=== PATIENT | female | born 1995 | race Caucasian/White ===

== ENCOUNTER → 2020-06-13 | Outpatient (CLI) | payer BC | END | disposition home or self-care (01) | LOC: LABWHC1 14:48 | PROVIDERS: ATTEND Otolaryngology | DX: J30.89 Other allergic rhinitis (principal) | CPT/HCPCS: 36415 ==

== ENCOUNTER → 2020-07-27 | Outpatient (CLI) | payer BC ==
--- NOTE | 2020-07-27 21:56 | CT ---
EXAMINATION TYPE: CT sinus wo con DATE OF EXAM: 07/27/2020 COMPARISON: HISTORY: Chronic sinusitis CT DLP: 660.80 mGycm. Automated Exposure Control for Dose Reduction was Utilized. TECHNIQUE: CT scan of the sinuses is performed without contrast, axial images are obtained, coronal r eformatted images are also reviewed. FINDINGS: The paranasal sinuses including the frontal, ethmoid, sphenoid, and maxillary sinuses bila terally are well-aerated without abnormal opacification. The ostiomeatal complex is patent bilateral ly on the coronal images. Greer cells noted bilaterally. There is a mildly deviated nasal septum tow ards the left. Cerumen present within the external auditory canals. Visualized portion of mastoid air cells show no abnormal opacification. The globes are intact bilate rally. IMPRESSION: The sinuses are clear and the ostiomeatal complex is patent bilaterally.
== END | disposition home or self-care (01) ==
LOC: RADCTMAIN 17:12
PROVIDERS: ATTEND Otolaryngology
DX: J32.9 Chronic sinusitis, unspecified (principal)
CPT/HCPCS: 70486

== ENCOUNTER 2022-12-29 16:25 | Outpatient (CLI) | payer BC ==
[2022-12-29] MEDS ORDERED: ONDANSETRON 4 MG/2 ML VIAL IVP STA (17:02)
[2022-12-29] MEDS ORDERED: FAMOTIDINE 20 MG/2 ML VIAL IV SCH (17:15)
[2022-12-29] MEDS ORDERED: LACTATED RINGERS 1,000 ML IV SCH (17:15)
[2022-12-29 17:32] LABS: Appearance,Urine Clear (Clear); Bilirubin,Urine Negative (Negative); Blood,Urine Negative (Negative); Color,Urine Light Yellow; Glucose,Urine (UA) Negative (Negative); Ketones,Urine Negative (Negative); Leukocyte Esterase,Urine Negative (Negative); Nitrite,Urine Negative (Negative); Protein,Urine Negative (Negative); Specific Gravity,Urine 1.016 (1.001-1.035); Urobilinogen,Urine <2.0 mg/dL (<2.0)
[2022-12-29] MEDS ORDERED: ACETAMINOPHEN IV (For NPO) 1,000 MG in EMPTY BAG 1 BAG IVPB ONE (17:36)
[2022-12-29 17:43] LABS: Creatinine,Urine Random 74.3 mg/dL; Protein/Creatinine Ratio,Urine 0.108
[2022-12-29 17:50] LABS: Basophils % (A) 0 %; Eosinophils # (A) 0.1 k/uL (0-0.7); Eosinophils % (A) 0 %; HCT 31.2 % (34.0-46.0); HGB 10.7 gm/dL (11.4-16.0); Lymphocytes # (A) 1.2 k/uL (1.0-4.8); Lymphocytes % (A) 4 %; MCHC 34.1 g/dL (31.0-37.0); Mean Platelet Volume 9.2; Monocytes # (A) 0.7 k/uL (0-1.0); Monocytes % (A) 2 %; Neutrophils # (A) 25.8 k/uL (1.3-7.7); Neutrophils % (A) 93 %; Platelet Count 222 k/uL (150-450); RBC 3.67 m/uL (3.80-5.40); RDW 12.8 % (11.5-15.5); WBC 27.9 k/uL (3.8-10.6)
[2022-12-29 18:03] LABS: ALT 27 U/L (4-34); AST 28 U/L (14-36); African American GFR (CKD) >90 (>60 ml/min/1.73 sqM); Albumin 3.7 g/dL (3.5-5.0); Alkaline Phosphatase 110 U/L (38-126); Anion Gap 6 mmol/L; Blood Urea Nitrogen 7 mg/dL (7-17); Calcium 9.5 mg/dL (8.4-10.2); Carbon Dioxide 22 mmol/L (22-30); Chloride 104 mmol/L (98-107); Glucose 105 mg/dL (74-99); LDH 209 U/L (120-246); Non-African American GFR(CKD) >90 (>60 ml/min/1.73 sqM); Potassium 4.2 mmol/L (3.5-5.1); Sodium 132 mmol/L (137-145); Total Bilirubin 0.5 mg/dL (0.2-1.3); Total Protein 6.6 g/dL (6.3-8.2); Uric Acid 3.5 mg/dL (3.7-7.4)
[2022-12-29 19:44] VITALS: BP 153/92; PULSE 121; RESP 18; TEMP 98.5
--- NOTE | 2022-12-31 08:00 | P.MSEPDOC ---
Presenting Problems - Arrival Data Date of Arrival on Unit: 12/29/22 Time of Arrival on Unit: 18:14 Mode of Transport: Ambulatory - Complaint OB-Reason for Admission/Chief Complaint: Acute Nausea/Vomiting, Headache, Other Comment: pt presents to triage after being asssessed at urgent care for covid/flu which was negative, they instructed her to be evaluated for elevated maternal heart rate, n/v, diarreha, body aches, chills, and SOB, Medical History - Information : 1 Para: 0 Term: 0 : 0 Abortions: Spontaneous or Elective: 0 Number of Living Children: 0 - Gestational Age Gestational Age by HARPAL (wks/days): 32 Weeks and 6 Days Review of Systems - Review of Systems Constitutional: No problems Breast: No problems ENT: No problems Cardiovascular: No problems Respiratory: No problems Gastrointestinal: No problems Genitourinary: No problems Musculoskeletal: No problems Neurological: No problems Skin: No problems Vital Signs - Temperature Temperature: 98.5 F Temperature Source: Temporal Artery Scan - Pulse Right Brachial Pulse Rate: 121 Pulse Assessment Method: Auscultation - Respirations Respiratory Rate: 18 Oxygen Delivery Method: Room Air O2 Sat by Pulse Oximetry: 96 - Blood Pressure Right Arm Blood Pressure: 153/92 Blood Pressure Mean: 112 Blood Pressure Source: Automatic Cuff Medical Screen Scoring - Uterine Contractions Intensity: Mild Resting: Soft to palpation - Assessment - Baby A Baseline FHR: 155 Heart Rate - NICHD Category: Category I (Normal) NST: Reactive Physician Notification - Physician Notified Physician Notified Date: 12/29/22 Physician Notified Time: 17:10 Physician: Gris Anderson New Order Received: Yes - Notification Comment Comment: Pt had work up for PIH due to 1st elevated bp's, wbc and neutraphils elevated, sodium low at 132, all other labs wnl, given ivf bolus, zofran, pepcid, and offirmive iv, pt feeling better, bp's wnl before disharge, has follow up appt in office on 01/08, Maternal Triage Index - Maternal Triage Index Presenting for scheduled procedure w/no complaint: No - Stat/Priority 1 Stat Priority 1: No - Urgent/Priority 2 Urgent Priority 2: No - Prompt/Priority 3 Prompt Priority 3: No - Non-Urgent/Priority 4 Non-Urgent Priority 4: Yes Criteria Met for Priority 4: pt presents to triage after being asssessed at urgent care for covid/flu which was negative, they instructed her to be evaluated for elevated maternal heart rate, n/v, diarreha, body aches, chills, and SOB, Disposition - Disposition OB Disposition: Physician follow up in office, Triage, Discharge to home, Written follow up instructions reviewed Discharge Date: 12/29/22 Discharge Time: 19:00 I agree with the RN Medical Screening Exam: Yes Physician's MSE Comment: I have neither seen nor examined the patient Case reviewed; plan agreed upon as documented in EMR&OBIX.: Yes Diagnosis: MATERNAL CARE FOR PROBLEM, UNSP, THIRD * DO NOT USE *
== END 2022-12-29 19:00 | disposition home or self-care (01) ==
LOC: FBPOP 16:25
PROVIDERS: ATTEND Obstetrics & Gynecology
DX: O21.9 Vomiting of pregnancy, unspecified (principal); R51.9 Headache, unspecified; Z3A.32 32 weeks gestation of pregnancy; Z20.822 Contact with and (suspected) exposure to COVID-19; Z88.1 Allergy status to other antibiotic agents
CPT/HCPCS: 59025; 99215; 96361; 96365; 96375; 82570; 80053; 84156; 83615; 84550; 85025; 81003; J2405; J3490; J0131

== ENCOUNTER 2023-02-10 13:40 | Inpatient (IN) | payer BC ==
[2023-02-10 14:50] LABS: Appearance,Urine Clear (Clear); Bacteria,Urine Rare /hpf; Bilirubin,Urine Negative (Negative); Blood,Urine Negative (Negative); Color,Urine Light Yellow; Glucose,Urine (UA) Negative (Negative); Ketones,Urine Negative (Negative); Leukocyte Esterase,Urine Negative (Negative); Mucus,Urine Rare /hpf; Nitrite,Urine Negative (Negative); PH, Urine 6.5 (5.0-8.0); Protein,Urine 1+ (Negative); RBC,Urine 1 /hpf (0-5); Specific Gravity,Urine 1.018 (1.001-1.035); Squamous Epithelial Cell,Urine 5 /hpf (0-4); Urobilinogen,Urine <2.0 mg/dL (<2.0); WBC,Urine 1 /hpf (0-5)
[2023-02-10] MEDS ORDERED: OXYTOCIN 10 UNIT/ML 1 ML VIAL IM PRN (15:11)
[2023-02-10] MEDS ORDERED: METHYLERGONOVINE 0.2 MG/ML 1 ML AMP IM PRN (15:11)
[2023-02-10] MEDS ORDERED: CARBOPROST TROMETHAMINE 250 MCG/ML 1 ML AMP IM PRN (15:11)
[2023-02-10] MEDS ORDERED: LIDOCAINE 0.5% (PF) 5 MG/ML (50 ML SDV) SQ PRN (15:11)
[2023-02-10] MEDS ORDERED: TRANEXAMIC 1,000 MG/100ML-NACL 1,000 MG in EMPTY BAG 1 BAG IV PRN (15:11)
[2023-02-10] MEDS ORDERED: TERBUTALINE 1 MG/ML VIAL SQ PRN (15:11)
[2023-02-10] MEDS ORDERED: miSOPROStoL 200 MCG TAB PO PRN (15:11)
[2023-02-10] MEDS ORDERED: PENICILLIN G POTASSIUM 5,000,000 UNIT in DEXTROSE 5% IN WATER 100 ML IVPB STA ×2 (15:11)
[2023-02-10] MEDS ORDERED: OXYTOCIN 30 UNITS/500 ML NS 30 UNIT in SALINE 1 500ML.BAG IV SCH (15:15)
[2023-02-10 15:43] LABS: Basophils # (A) 0.1 k/uL (0-0.2); Basophils % (A) 0 %; Eosinophils # (A) 0.1 k/uL (0-0.7); Eosinophils % (A) 1 %; HCT 39.9 % (34.0-46.0); HGB 13.1 gm/dL (11.4-16.0); Lymphocytes # (A) 2.3 k/uL (1.0-4.8); Lymphocytes % (A) 14 %; MCH 26.6 pg (25.0-35.0); MCHC 32.9 g/dL (31.0-37.0); Mean Platelet Volume 10.7; Monocytes # (A) 0.6 k/uL (0-1.0); Monocytes % (A) 4 %; Neutrophils # (A) 13.3 k/uL (1.3-7.7); Neutrophils % (A) 80 %; Platelet Count 244 k/uL (150-450); RBC 4.93 m/uL (3.80-5.40); RDW 13.9 % (11.5-15.5); WBC 16.5 k/uL (3.8-10.6)
[2023-02-10] MEDS: LACTATED RINGERS 1,000 ML IV SCH ×2 (15:44→18:22)
[2023-02-10] MEDS ORDERED: ROPIVACAINE 5 MG/ML 30 ML VIAL ONE (17:55)
[2023-02-10] MEDS ORDERED: fentaNYL (PF) 50 MCG/ML 5 ML AMP ONE (17:55)
[2023-02-10] MEDS ORDERED: SODIUM CHLORIDE 0.9% 250 ML BAG ONE (17:55)
[2023-02-10] MEDS: PENICILLIN G POTASSIUM 2,500,000 UNIT in DEXTROSE 5% IN WATER 100 ML IVPB SCH ×2 (19:29)
[2023-02-10] MEDS ORDERED: FAMOTIDINE 20 MG/2 ML VIAL IV SCH (21:12)
--- NOTE | 2023-02-10 21:12 | P.HPOB ---
History of Present Illness H&P Date: 02/10/23 Chief Complaint: Regular contractions 28 year old at 39 weeks and 0 days with EDC of 02/17/2023 (by LMP consistent with 7 week US) who presents in labor. The has been complicated by maternal anxiety for which she is seeing a therapist and taking Zoloft 50mg daily. There was also an irregular heart rate noted at 24 weeks which resolved. work-up: blood type O positive, antibody negative, rubella immune, VDRL non-reactive, HBsAg negative, HIV negative, HCV Ab negative, gonorrhea negative, chlamydia negative, 1 hour GTT within normal limits, GBS positive. TDap administered 12/24/2022. Past Medical History Past Medical History: Asthma History of Any Multi-Drug Resistant Organisms: None Reported Past Surgical History: No Surgical Hx Reported Past Anesthesia/Blood Transfusion Reactions: No Reported Reaction Past Psychological History: Anxiety Smoking Status: Never smoker Past Alcohol Use History: None Reported Past Drug Use History: None Reported Medications and Allergies Home Medications Medication Instructions Recorded Confirmed Type Acetaminophen/Diphenhydramine 1 tab PO HS 02/10/23 02/10/23 History [Tylenol PM 500-25mg] Famotidine [Pepcid] 20 mg PO DAILY 02/10/23 02/10/23 History Montelukast Sodium 10 mg PO DAILY 02/10/23 02/10/23 History Sertraline [Zoloft] 50 mg PO DAILY 02/10/23 02/10/23 History Allergies Allergy/AdvReac Type Severity Reaction Status Date / Time azithromycin Allergy Rash/Hives Verified 02/10/23 13:51 [From Zithromax Z-Ney] Exam Vital Signs Temp Pulse Resp BP Pulse Ox 02/10/23 13:50 97 F L 100 16 139/92 96 Intake and Output 02/10/23 02/10/23 02/10/23 06:59 14:59 22:59 Other: Weight 99.79 kg 99.79 kg Focused physical exam is performed. This is a healthy-appearing in no apparent distress. Breathing is non-labored. Abdomen is gravid and non-tender. Cervical exam is 5 cm, 90 effacement, -2 station. AROM is undertaken with thick meconium noted. Extremities non-tender and non-edematous. heart tones are Category I and tocometer is graphing contractions every 2-4 minutes. Results Result Diagrams: 02/10/23 15:30 Abnormal Lab Results - Last 24 Hours (Table) 02/10/23 02/10/23 Range/Units 13:57 15:30 WBC 16.5 H (3.8-10.6) k/uL Neutrophils # 13.3 H (1.3-7.7) k/uL Urine Protein 1+ H (Negative) Ur Squamous Epith Cells 5 H (0-4) /hpf Urine Bacteria Rare H (None) /hpf Urine Mucus Rare H (None) /hpf Assessment and Plan Assessment: 28 year old at 39 weeks presenting in spontaneous labor Plan: Admit, clear liquid diet, pitocin per protocol, has epidural, continuous EFM and tocometer, close monitoring of patient. Anticipate vaginal delivery. Time with Patient: Less than 30
[2023-02-11] MEDS: PENICILLIN G POTASSIUM 2,500,000 UNIT in DEXTROSE 5% IN WATER 100 ML IVPB SCH ×4 (01:41→04:55)
[2023-02-11] MEDS: LACTATED RINGERS 1,000 ML IV SCH (02:55)
[2023-02-11] MEDS ORDERED: HYDROCORTISONE 2.5% RECTAL CREAM 30 GM TUBE RECTAL PRN (07:28)
[2023-02-11] MEDS ORDERED: diphenhydrAMINE 50 MG CAP PO PRN (07:28)
[2023-02-11] MEDS ORDERED: BENZOCAINE/MENTHOL SPRAY 1 GM/SPRAY AEROSOL TOPICAL PRN (07:28)
[2023-02-11] MEDS ORDERED: SIMETHICONE 80 MG CHEWABLE PO PRN (07:28)
[2023-02-11] MEDS ORDERED: diphenhydrAMINE 50 MG/ML 1 ML VIAL IVP PRN ×2 (07:28)
[2023-02-11] MEDS ORDERED: LANOLIN CREAM 5 GM TUBE TOPICAL PRN (07:28)
[2023-02-11] MEDS ORDERED: diphenhydrAMINE 25 MG CAP PO PRN (07:28)
[2023-02-11] MEDS ORDERED: ZOLPIDEM 5 MG TAB PO PRN (07:28)
--- NOTE | 2023-02-11 07:28 | P.PROBDLV ---
Vaginal Delivery Note - . Vaginal Delivery Note: DATE OF SERVICE: 02/11/2023 PROCEDURE: Normal Vaginal Delivery ATTENDING: Dr. Gris Anderson MD ESTIMATED BLOOD LOSS: 300 mL FINDINGS: VMI, Apgars 8/9. Weight 7 pounds and 12 ounces (3511 grams) PROCEDURE: Ms. Soriano is a 28 year old at 39 weeks and 1 day who presented to labor and delivery in spontaneous labor. Epidural anesthesia was given per the patient's request. Oxytocin augmentation was started and AROM was undertaken at 2058. The patient was completely dilated at 419. The patient pushed effectively with Category I featl heart tones throughout the second stage of labor. A viable male infant was delivered at 651 in occiput anterior presentat ion. The infant was placed on the maternal abdomen and bulb suctioned. The infant was noted to be spontaneously crying. Cord was clamped and cut after a 30-second delay. The was handed off to the pediatric team. Placenta was delivered whole with gentle cord traction at 655. Oxytocin was started to facilitate uterine tone. Uterine fundus was found to be firm and below the umbilicus upon fundal massage. Thorough examination of the cervix, vagina, periurethral area, and perineum revealed a second degree laceration. This laceration was infused with lidocaine and repaired with 2-0 Vicryl in the usual fashion. The patient is stable and allowed to begin the bonding process.
[2023-02-11] MEDS: SENNOSIDES-DOCUSATE SODIUM 1 EACH TAB PO SCH ×2 (08:00→19:59)
[2023-02-11] MEDS: IBUPROFEN 600 MG TAB PO PRN ×3 (09:30→22:28)
[2023-02-11 17:43] VITALS: RESP 16
[2023-02-11] MEDS: ACETAMINOPHEN TAB 325 MG TAB PO PRN (18:20)
[2023-02-12] MEDS: ACETAMINOPHEN TAB 325 MG TAB PO PRN (00:25)
[2023-02-12 07:07] LABS: Basophils # (A) 0.1 k/uL (0-0.2); Basophils % (A) 0 %; Eosinophils # (A) 0.1 k/uL (0-0.7); Eosinophils % (A) 1 %; HCT 32.6 % (34.0-46.0); HGB 10.6 gm/dL (11.4-16.0); Hypochromasia Slight; Lymphocytes # (A) 3.7 k/uL (1.0-4.8); Lymphocytes % (A) 19 %; MCH 26.7 pg (25.0-35.0); MCHC 32.4 g/dL (31.0-37.0); MCV 82.2 fL (80.0-100.0); Mean Platelet Volume 10.7; Monocytes # (A) 0.8 k/uL (0-1.0); Monocytes % (A) 4 %; Neutrophils # (A) 14.4 k/uL (1.3-7.7); Neutrophils % (A) 74 %; Platelet Count 199 k/uL (150-450); RBC 3.97 m/uL (3.80-5.40); RDW 14.2 % (11.5-15.5); WBC 19.3 k/uL (3.8-10.6)
[2023-02-12] MEDS: IBUPROFEN 600 MG TAB PO PRN (07:11)
[2023-02-12 08:36] VITALS: BP 131/78; PULSE 77; TEMP 98.2
[2023-02-12] MEDS: SENNOSIDES-DOCUSATE SODIUM 1 EACH TAB PO SCH (09:36)
--- NOTE | 2023-02-12 10:23 | P.PNOBGVD ---
Subjective - Subjective Principal diagnosis: day 1 status post normal spontaneous vaginal delivery Interval history: Patient is doing well this morning. She is ambulating and voiding without difficulty. She is in moderate pain which ibuprofen is controlling. She states her bleeding is moderate. Patient reports: Reports appetite normal, Reports voiding normally, Reports pain well controlled, Reports ambulating normally [place]: doing well Objective - Latest Vital Signs Latest vital signs: Vital Signs Temp Pulse Resp BP Pulse Ox 02/12/23 08:00 98.2 F 77 16 131/78 02/12/23 00:00 97.5 F L 71 16 132/78 02/11/23 17:38 97.8 F 91 16 126/81 02/11/23 12:00 98.6 F 84 15 125/80 97 - Exam Extremities: Present: normal, edema Abdomen: Present: normal appearance, soft Uterus: Present: normal, firm - Labs Labs: Abnormal Lab Results - Last 24 Hours (Table) 02/12/23 Range/Units 06:55 WBC 19.3 H (3.8-10.6) k/uL Hgb 10.6 L (11.4-16.0) gm/dL Hct 32.6 L (34.0-46.0) % Neutrophils # 14.4 H (1.3-7.7) k/uL Assessment and Plan (1) Obstetrical laceration, second degree Current Visit: Yes Status: Acute Code(s): O70.1 - SECOND DEGREE PERINEAL LACERATION DURING DELIVERY SNOMED Code(s): 1294282 (2) Active labor at term Current Visit: Yes Status: Acute Code(s): BJO3815 - SNOMED Code(s): 14066614 (3) Normal vaginal delivery Current Visit: Yes Status: Acute Code(s): O80 - ENCOUNTER FOR FULL-TERM UNCOMPLICATED DELIVERY SNOMED Code(s): 10745224 (4) Second degree perineal laceration Current Visit: Yes Status: Acute Code(s): O70.1 - SECOND DEGREE PERINEAL LACERATION DURING DELIVERY SNOMED Code(s): 9798702 (5) Thick meconium stained amniotic fluid Current Visit: Yes Status: Acute Code(s): P96.83 - MECONIUM STAINING SNOMED Code(s): 812958393 Plan: 20-year-old G1 now P1 status post normal spontaneous vaginal delivery. Patient is doing well this morning. Plan to continue routine care Anticipate discharge home tomorrow.
--- NOTE | 2023-02-12 17:18 | P.DS ---
Providers Date of admission: 02/10/23 15:24 Expected date of discharge: 02/12/23 Attending physician: Ciera Maddox Primary care physician: Stated None - Discharge Diagnosis(es) (1) Obstetrical laceration, second degree Current Visit: Yes Status: Acute (2) Active labor at term Current Visit: Yes Status: Acute (3) Normal vaginal delivery Current Visit: Yes Status: Acute (4) Second degree perineal laceration Current Visit: Yes Status: Acute (5) Thick meconium stained amniotic fluid Current Visit: Yes Status: Acute Hospital Course: This is a 28-year-old 1 now para 1 that presented to labor and delivery at 39 and one sevenths weeks with complaints of spontaneous labor. Patient receiving routine care which had been essentially uncomplicated. Patient does struggle with anxiety for which she was taking Zoloft through the . Patient was admitted and Pitocin augmentation of labor was begun, amniotomy was performed around 2057 on 02/10. Patient was noted to be completely dilated at 0419 on 02/11 patient is currently began pushing and had a normal spontaneous vaginal delivery of a viable male infant, weight of 7 lbs. 12 oz., Apgars of 8 and 9 at one and 5 minutes respectively. Patient did sustain a second-degree vaginal laceration which was repaired in usual fashion with 2-0 Vicryl. Patient's course has been essentially uneventful. On this day #1 she is ambulating and voiding without difficulty. She is tolerating a regular diet without nausea or vomiting. States her pain is well-controlled. She denies concerns and would like discharge home today.. Patient Condition at Discharge: Good Plan - Discharge Summary New Discharge Prescriptions: No Action Montelukast Sodium 10 mg PO DAILY Sertraline [Zoloft] 50 mg PO DAILY Acetaminophen/Diphenhydramine [Tylenol PM 500-25mg] 1 tab PO HS Famotidine [Pepcid] 20 mg PO DAILY Discharge Medication List Acetaminophen/Diphenhydramine [Tylenol PM 500-25mg] 1 tab PO HS 02/10/23 [History] Famotidine [Pepcid] 20 mg PO DAILY 02/10/23 [History] Montelukast Sodium 10 mg PO DAILY 02/10/23 [History] Sertraline [Zoloft] 50 mg PO DAILY 02/10/23 [History] Follow up Appointment(s)/Referral(s): Ciera Maddox DO [Doctor of Osteopathic Medicine] - 6 Weeks Patient Instructions/Handouts: Vaginal Delivery (DC), Vaginal Delivery (GEN) Activity/Diet/Wound Care/Special Instructions: No tub baths or intercourse until 6 weeks . bleeding is discussed with patient and her . [id number] ibuprofen 600 mg or 3 tablets every 6 hours as needed for pain. Discharge Disposition: HOME SELF-CARE
== END 2023-02-12 18:00 | disposition home or self-care (01) | DRG 807 ==
LOC: FBPOP 13:40 → 4FBP 15:24
PROVIDERS: ADMIT Obstetrics & Gynecology; ATTEND Obstetrics & Gynecology Obstetrics
PROC: 10E0XZZ Delivery of Products of Conception, External Approach (ICD-10-PCS; principal; 2023-02-11)
PROC: 0KQM0ZZ Repair Perineum Muscle, Open Approach (ICD-10-PCS; 2023-02-11)
PROC: 10907ZC Drainage of Amniotic Fluid, Therapeutic from Products of Conception, Via Natural or Artificial Opening (ICD-10-PCS; 2023-02-11)
PROC: 3E033VJ Introduction of Other Hormone into Peripheral Vein, Percutaneous Approach (ICD-10-PCS; 2023-02-11)
DX: O77.0 Labor and delivery complicated by meconium in amniotic fluid (principal); O99.344 Other mental disorders complicating childbirth; F41.9 Anxiety disorder, unspecified; J45.909 Unspecified asthma, uncomplicated; O70.1 Second degree perineal laceration during delivery; O99.52 Diseases of the respiratory system complicating childbirth; Z79.899 Other long term (current) drug therapy; Z3A.39 39 weeks gestation of pregnancy; Z37.0 Single live birth
CPT/HCPCS: 59025; 81001; 85025; 86850; 86900; 86901; 99213